=== PATIENT | female | born 1990 | race Caucasian/White ===

== ENCOUNTER 2017-03-28 23:42 | Inpatient (IN) | payer OTHER ==
[~2017-03-28] VITALS: Ht 154.9 cm; Wt 89.8 kg
[2017-03-29] MEDS ORDERED: Lactated Ringer's 1,000 ML IV PRN (00:53)
[2017-03-29] MEDS ORDERED: Oxytocin 10 Unit/mL Inj IM PRN ×2 (00:55→04:10)
[2017-03-29] MEDS ORDERED: Sodium Chloride LOK Flush 10 mL Syringe IVFLUSH PRN (00:55)
[2017-03-29] MEDS ORDERED: Oxytocin 30 Units/500 mL LR 30 UNITS in IV Premix 1 EACH IV PRN ×2 (00:55→04:10)
[2017-03-29] MEDS ORDERED: Methylergonovine 0.2 mg/mL Inj IM PRN ×2 (00:55→04:10)
[2017-03-29] MEDS ORDERED: Carboprost 250 mCg/mL Inj IM PRN ×2 (00:55→04:10)
[2017-03-29] MEDS ORDERED: Hemorrhage Kit, Post Partum XX ONE ×2 (00:55→04:10)
[2017-03-29 01:02] LABS: Mean Corpuscular Volume 83.9 fL (81-100)
[2017-03-29] MEDS ORDERED: Lactated Ringer's 1,000 ML IV SCH ×2 (01:08→04:10)
[2017-03-29] MEDS ORDERED: Lactated Ringer's 500 ML IV ONE (01:08)
[2017-03-29] MEDS ORDERED: EPHEDrine Sulfate 50 mg/mL Inj IVPUSH PRN (01:10)
[2017-03-29] MEDS ORDERED: fentaNYL 2 mCg/mL-Bupiv 0.125% 100 ML EPIDURAL SCH (01:10)
[2017-03-29] MEDS ORDERED: Ondansetron 2 mg/mL 2 mL Inj IVPUSH PRN (01:10)
[2017-03-29] MEDS ORDERED: Atropine 1 mg/10 mL (Code) Syringe IVPUSH PRN (01:10)
--- NOTE | 2017-03-29 01:10 | PCM.HPANE ---
Patient Data Surgeon Admitting Provider:Kristine Major MD Attending Provider:Kristine Major MD Primary Care Physician:Karthik Other Provider:Michelle Osuna Anesthesia Reason for Visit Term Labor TERM LABOR CHECK Ht/WT & BMI Body Mass Index Allergies Coded Allergies: No Known Allergies (Unverified , 03/29/17) Past Anesthesia History Anesthesia History: Denies:: Abnormal Airway, Anesthesia Reactions, Difficult Intubation, Fam Anesthesia Reaction, Fam Malignant Hypertherm, Malignant Hyperthermia History History of ENT Problems?: No HEENT History: Denies:: Abnormal Airway Cataracts Difficult Intubation Dysphagia Glaucoma Hearing Problem Sinus Problem TMJ Denture Type: None Teeth Condition: Within Normal Limits Hx of Heart Problems?: No Cardiovascular History: Denies:: AICD Abdominal Aortic Aneurism Atrial Fibrillation Cardiac Surgery Chest Pain Congestive Heart Failure Coronary Artery Disease Edema Heart Murmur Hypertension Irregular Heartbeat Pacemaker Peripheral Vascular Rheumatic Fever Thrombophlebitis Valvular Heart Disease Hx of Respiratory Problem?: No Respiratory History: Denies:: Asthma COPD Chest Surgery Cough Dyspnea Emphysema Hemoptysis Oxygen Administration Pneumonia Pulmonary Embolism Tuberculosis Use of C-PAP Machine Use of Inhalers / NEBS Hx Neurologic Problems?: No Neurological History: Denies:: Alzheimer's Disease CVA Dementia Dizziness Headaches Multiple Sclerosis Parkinson's Disease Peripheral Neuropathy Seizures TIA Hx of GI Problems?: No Gastrointestinal History: Denies:: Cirrhosis Diverticulitis Gall Bladder Disease Gastroesphageal Reflux Gastrointestinal Bleeding Heartburn Hepatitis Hiatal Hernia Liver Disease Rectal Bleeding Hx of Problems?: No Genitourinary History: Denies:: HX of Hemodialysis Kidney Stones Urinary Tract Infection HX of Peritoneal Dialysis: No Female Hx: Denies:: Currently Endometriosis Pelvic Inflammatory Problems with Breasts? Skin History: Denies:: History Skin Disorders? Pressure Ulcers Hx Musculoskeletal Problems?: No Musculoskeletal History: Denies:: Back Injury Degenerative Joint Fibromyalgia Joint Replacement Musculoskeletal Trauma Myasthenia Gravis Osteoarthritis Rheumatoid Arthritis Systemic Lupus Hx of Psycho/Social Problems?: No Psycho Social History: Denies:: Anxiety Bipolar Disorder Hx Depression Suicide Attempt Hx Surgeries?: No Hx Any Other Health Problems?: No Other History: Denies:: Cancer Endocrine Disease Hospitalization Thyroid Disease History Blood Transfusions: Denies:: Accept Blood Products? Blood Transfuse Reaction Blood Transfusions Hx Diabetes: No Hx Alcohol Use: NoHx Substance Use: No Smoking Status: Never Smoker Have You Smoked inLast 12 mo: No Stop/Bang Risk Assessment Category Category 1A: Patient has history of documented sleep apnea, and HAS NOT received any narcotic, sedative or anesthesia administration during this stay. Category 1B: Patient has history of documented sleep apnea, and HAS received any narcotic , sedative or anesthesia administration during this stay Category 2: Patient has SUSPECTED Obstructive Sleep Apnea, and HAS received any narcotic , sedative or anesthesia administration during this stay. Category 3: Patient has SUSPECTED Obstructive Sleep Apnea and HAS NOT received narcotic, sedative or anesthesia administration during this stay. Category 4: Outpatient in Procedural Areas with known sleep apnea or who screen positive for High Risk via the STOP/BANG questionnaire. Exam Exam General Appearance: Alert, Oriented X3, Cooperative HEENT/AIRWAY: MP 2, Neck Movement (from), Mouth Opening (wnl) Lungs: Clear to Auscultation Heart: Exam Unremarkable Meds/Labs/Diagnostics Labs Test 03/29/17 00:26 White Blood Count 10.1th/mm3 (3.8-10.1) Red Blood Count 4.48mil/mm3 (3.90-5.20) Hemoglobin 13.0g/dL (12.0-15.6) Hematocrit 37.6% (35.0-46.0) Mean Corpuscular Volume 83.9fL (81-100) Mean Corpuscular Hemoglobin 29.0pg (27.0-35.0) Mean Corpuscular Hemoglobin Concent 34.6% (32.0-37.0) Red Cell Distribution Width 13.5% (12.3-15.4) Platelet Count 215bil/L (150-400) Plan Impression Patient chart reviewed, patient interviewed and anesthestic plan with risks, benefits, and alternatives discussed, and informed consent obtained. ASA Physical Status: ASA2 Mod Systemic Disease Anesthetic Plan: Epidural Bene/Risks/Altern/Consents: Yes HP Complete Prior to Induction: Yes Azam Díaz MD March 29, 2017 01:10
--- NOTE | 2017-03-29 01:51 | PCM.ANEP1 ---
Post Anesthesia Phase 1 PACU Phase 1 Assessment Anesthetic Administered: Epidural Level of Alertness: Awake, talking WOO's with Equal Strength: Yes Pain: Yes Nausea or Vomiting: No Oxygen Delivery: Room Air Lungs: Normal Air Movement Dermatome Level: T10 (Umbilicus) Complications: No Follow up Care: No Azam Díaz MD March 29, 2017 01:51
[2017-03-29] MEDS ORDERED: LANOlin HPA 7 Gm Ointment TOPICAL PRN (04:10)
[2017-03-29] MEDS ORDERED: Witch Hazel-Glycerin Pads TOPICAL PRN (04:10)
[2017-03-29] MEDS ORDERED: Benzocaine (Dermoplast) 20% 60 Gm Spray TOPICAL PRN (04:10)
--- NOTE | 2017-03-29 04:20 | HP ---
[address] [address] HISTORY AND PHYSICAL PATIENT: ROJELIO MALDONADO : 1990 MR#: [id number] ADMIT: 03/29/2017 JOB ID: [id number] ADMISSION DIAGNOSIS: Active labor at term. HISTORY OF PRESENT ILLNESS: Patient is 26 years old, 2, para 1-0-0-1, at 40 weeks and 1 day gestational age by LMP, confirmed by first trimester ultrasound, admitted in active labor. Had her complicated with tension headaches that resolved lately. PAST OBSTETRICAL HISTORY: In 2013, 38 weeks and 5 days gestational age, ended with spontaneous vaginal delivery, 6 pounds 13 ounces baby female, no complications, and the current . PAST GYNECOLOGIC HISTORY: Prior history of abnormal Pap smears. Last Pap was normal during this . PAST MEDICAL HISTORY: Tension headaches. PAST SURGICAL HISTORY: Foot surgery as a teenager. ALLERGIES: VICODIN with itching. SOCIAL HISTORY: Denied any alcohol consumption, any drugs of abuse. Denied any cigarette smoking. LABORATORIES: O-positive, antibody negative, rubella immune, varicella immune, serology nonreactive, hepatitis B surface antigen negative. HIV nonreactive. Gonorrhea and Chlamydia cultures negative. GBS cultures negative. PHYSICAL EXAMINATION: Patient is alert, oriented x3. Vital signs: Blood pressure 119/69, respirations are 18, pulse is 79. Heart: Regular rate and rhythm. Positive S1, S2. Lungs: Clear to auscultation bilaterally. Abdomen: Gravid uterus, nontender. Positive bowel sounds. Lower extremities: No calf tenderness appreciated bilaterally. Cervical exam: Fully dilated, cervix 0 station. heart tracing is showing baseline of 130 beats per minute, positive accelerations, no decelerations, moderate variability, category 1 heart tracing. ASSESSMENT AND PLAN: The patient is 26 years old, 2, para 1-0-0-1, at 40 weeks and 1 day gestational age by last menstrual period, confirmed by first trimester ultrasound, admitted in active labor, 1. Labor: patient progressed to fully dilated, 0 station. Will start pushing. 2. Epidural is adequate for pain control. 3. GBS culture negative. 4. Category 1 heart tracing. All of the above discussed in details with the patient, who agreed to the plan. [facility]
--- NOTE | 2017-03-29 04:24 | OP ---
[address] [address] OPERATIVE REPORT PATIENT: ROJELIO MALDONADO : 1990 MR#: [id number] ADMIT: 03/29/2017 JOB ID: [id number] DATE OF SURGERY: 03/29/2017 PREOPERATIVE DIAGNOSIS(ES): A 26-year-old, 2, para 1-0-0-1, at 40 weeks 1 day gestational age by last menstrual period, confirmed by first trimester ultrasound, admitted for active labor. Progressed to fully dilated, +3 station. POSTOPERATIVE DIAGNOSIS(ES): A 26-year-old, 2, para 1-0-0-1, at 40 weeks 1 day gestational age by last menstrual period, confirmed by first trimester ultrasound, admitted for active labor. Progressed to fully dilated, +3 station. PROCEDURE: Spontaneous vaginal delivery. SURGEON: Kristine Major MD ANESTHESIA: Epidural. ESTIMATED BLOOD LOSS: 200 cc. COMPLICATIONS: None. FINDINGS: Single viable female with Apgars 9/10. Weight pending. DESCRIPTION OF PROCEDURE: The patient started to push efficiently. Infant head delivered in right occiput anterior position, followed by the shoulders and rest of the body. Delayed cord clamping allowed for 60 seconds. Infant placed over mom's chest. Cord clamped and cut. Cord blood collected. Placenta followed spontaneously. Upon inspection, it was noted to be intact with three-vessel cord centrally inserted. Firm uterine fundus at the end of the delivery. No blood clots retrieved. Inspection of the perineum revealed an intact perineum. Good hemostasis assured. Both mom and baby are recovering well in the Labor and Delivery Room. Sponge and instrument counts were correct x2. Dr. Major was present and scrubbed for the entire procedure. [facility]
[2017-03-29] MEDS ORDERED: Ascorbic Acid 500 mg Tablet PO SCH (08:00)
[2017-03-29] MEDS ORDERED: Sodium Chloride LOK Flush 10 mL Syringe IVFLUSH SCH (08:30)
[2017-03-30 06:42] LABS: Mean Corpuscular Hemoglobin 29.6 pg (27.0-35.0); Mean Corpuscular Volume 86.7 fL (81-100)
--- NOTE | 2017-03-30 07:56 | PCM.DIOB ---
Obstetrical Disch Instruction Date of Service: March 30, 2017 Dates of Hospitalization Date of Hospital Admission March 29, 2017 at 00:15 Providers Admitting Physician: Kristine Major MD Primary Care Physician: Nopilya Attending Physician: Kristine Major MD Discharge Diagnosis Discharge Diagnosis vaginal delivery PPD1 Problems: Diet Discharge Diet: No restrictions Activity Discharge Activity-General: Pelvic Rest for 6 weeks, Try not to overdue, Be up and about, No lifting >15 pounds for 2 weeks Dressing and Incisional Care Hygiene: May shower, NO bathtub, hot tub or whirlpool Additional Instructions Discharge Instructions Please call office if heavy vaginal bleeding, severe abdominal pain, foul smelling discharge, fever more than 100.4 or short of breath. Follow Up Plan Follow Up Plan 6 weeks in office Follow-up appointment: Weeks (6) Call your provider for: Fever or Chills, Shortness of breath, Heavy vaginal bleeding, Vaginal discomfort, Red painful breasts Kelsie Son MD March 30, 2017 07:56
[2017-03-30] MEDS ORDERED: IBUP-1827 PO (07:57)
--- NOTE | 2017-03-30 08:13 | DIS ---
[address] [address] DISCHARGE SUMMARY PATIENT: ROJELIO MALDONADO : 1990 MR#: [id number] ADMIT: 03/29/2017 JOB ID: [id number] DIS: 03/30/2017 HOSPITAL COURSE: This is a 26-year-old female, 2, para 2, status post vaginal delivery, day one. The patient is doing well. Pain is well controlled. Lochia was not heavy. Tolerated diet and voiding well. PHYSICAL EXAMINATION: She is afebrile. Vitals in normal range. Cardiac: RRR. No murmur. Pulmonary: Bilaterally clear. Abdomen is soft, nontender. Uterus is well contracted. Extremities nontender. Lochia moderate to minimal. ASSESSMENT AND PLAN: A 26-year-old female, 2, para 2, status post vaginal delivery, day one. PLAN: To discharge her home today. Instructed that if there is heavy vaginal bleeding, severe abdominal pain, foul-smelling discharge, fever more than 100.4, she should call office or go to the ED for evaluation. She is instructed to follow up in the office six weeks after delivery. Motrin 600 mg, 30 pills prescribed, no refills.
== END 2017-03-30 10:40 | disposition home or self-care (01) | DRG 560 ==
LOC: FBCO 23:42 → FBC 03-29 00:15
PROVIDERS: ADMIT Obstetrics & Gynecology; ATTEND Obstetrics & Gynecology
PROC: 10E0XZZ Delivery of Products of Conception, External Approach (ICD-10-PCS; principal; 2017-03-29)
DX: O80 Encounter for full-term uncomplicated delivery (principal); Z37.0 Single live birth; Z3A.40 40 weeks gestation of pregnancy